=== PATIENT | male | born 1965 | race Caucasian/White ===

== ENCOUNTER → 2023-03-15 14:54 | Outpatient (CLI) | payer BC, SELFPAY ==
--- NOTE | ~2023-03-15 | MR_ITS ---
EXAMINATION: MR knee LT wo con DATE: 03/15/2023 15:49 INDICATION: Internal derangement of left knee. Left knee pain. TECHNIQUE: Magnetic resonance imaging (MRI) of the left knee was performed without intravenous contra st. Sequences included axial PD-weighted FS FSE, coronal PD-weighted FSE and PD-weighted FS FSE, sagi ttal PD-weighted FSE, and sagittal T2-weighted FS FSE. COMPARISON: None. FINDINGS: Medial compartment: Medial meniscus is normal. There is cartilage surface irregularity of medial femoral condyle involvin g the central and lateral articular surface. Tibial cartilage is normal. Lateral compartment: Lateral meniscus is normal. Lateral compartment cartilage is normal. Patellofemoral compartment: There is cartilage surface irregularity of patellar lateral facet. There is cartilage surface irregul arity of trochlea. Ligaments and tendons: The anterior and posterior cruciate ligaments are normal. There are changes of prior sprains of media l collateral ligament and fibular collateral ligament characterized by thickening and increased signa l intensity proximally. There is mild patellar tendinopathy. Fluid: There is a small knee joint effusion. There is a small Carrero's cyst. Osseous/other: There is edema-like marrow signal intensity in medial aspect of medial femoral condyle. IMPRESSION: 1. Edema-like marrow signal intensity in medial aspect of medial femoral condyle, likely a contusion. 2. Mild chondrosis of medial and patellofemoral compartments. 3. Small knee joint effusion. 4. Small Carrero's cyst. Reviewed, dictated and finalized at location A. IMPRESSION: 1. Edema-like marrow signal intensity in medial aspect of medial femoral condyl e, likely a contusion. 2. Mild chondrosis of medial and patellofemoral compartments. 3. Small knee joint effusion. 4. Small Carrero's cyst.
== END ==
PROVIDERS: PCP Internal Medicine; Visit Provider Internal Medicine
DX: M23.92 Unspecified internal derangement of left knee (principal); M25.462 Effusion, left knee; M71.22 Synovial cyst of popliteal space [Baker], left knee
CPT/HCPCS: 73721